=== PATIENT | male | born 1965 | race African-American/Black ===

== ENCOUNTER 2024-11-10 23:41 | Emergency (ER) | payer BC, OTHER ==
[2024-11-10 23:53] VITALS: BMI 21.8
[2024-11-11] MEDS ORDERED: ALBUTEROL SO4 2.5/IPRATROPIUM 0.5 INH SOL 3 ML VIAL.NEB. NEB ONE (00:05)
[2024-11-11] MEDS ORDERED: FUROSEMIDE 40 MG/4 ML INJECTABLE VIAL ONE (00:13)
[2024-11-11] MEDS ORDERED: ASPIRIN 81 MG CHEWABLE TABLETS ONE (00:13)
[2024-11-11] MEDS: ASPIRIN 81 MG CHEWABLE TABLETS PO ONE (00:23)
[2024-11-11] MEDS ORDERED: CLOPIDOGREL BISULFATE 300 MG TABLET ONE (00:25)
[2024-11-11] MEDS ORDERED: ONDANSETRON 4 MG/2 ML VIAL ONE (00:25)
[2024-11-11] MEDS ORDERED: FAMOTIDINE 20 MG/50 ML IVPB 20 MG/50 ML MG IVPB ONE (00:25)
[2024-11-11 00:27] LABS: BASO % 0.6 % (0-2.0); EOS % 0.1 % (0-4.5); HEMATOCRIT 39.9 % (35.4-49); HEMOGLOBIN 13.5 GM/dL (11.7-16.9); LYMPH % 43.4 % (8-40); MCH 34.6 pg (25.7-33.7); MCHC 33.7 g/dl (32.0-35.9); MEAN CELL VOLUME 102.7 fl (80-96); MEAN PLT VOLUME 8.4 fl (7.5-11.1); MONO % 13.8 % (3.8-10.2); NEUT % 42.1 % (42.8-82.8); PLATELET COUNT 102 10^3/uL (134-434); RBC 3.89 M/mm3 (4.00-5.60); RDW 14.4 % (11.9-15.9); WHITE BLOOD COUNT 3.7 K/mm3 (4.0-10.0)
[2024-11-11] MEDS: FAMOTIDINE 20 MG/50 ML IVPB 20 MG/50 ML MG IVPB ONE (00:27)
[2024-11-11] MEDS: FUROSEMIDE 40 MG/4 ML INJECTABLE VIAL IVPUSH ONE (00:27)
[2024-11-11] MEDS: CLOPIDOGREL BISULFATE 300 MG TABLET PO ONE (00:28)
[2024-11-11] MEDS: ONDANSETRON 4 MG/2 ML VIAL IVPUSH ONE (00:28)
[2024-11-11 00:31] VITALS: RESP 18
[2024-11-11] MEDS ORDERED: PANTOPRAZOLE SODIUM 40 MG VIAL ONE (00:32)
[2024-11-11] MEDS: PANTOPRAZOLE SODIUM 40 MG VIAL IVPUSH ONE (00:33)
[2024-11-11 00:35] LABS: VENOUS BASE EXCESS -3.3 mmol/L (-2-2); VENOUS O2 SATURATION 80.1 % (70-80); VENOUS PCO2 30.8 mmHg (38-52); VENOUS PH 7.429 (7.310-7.410)
[2024-11-11 01:16] VITALS: BP 124/76; PULSE 133; TEMP 98.7
[2024-11-11 01:22] LABS: INR 1.3 (0.83-1.09); PROTHROMBIN TIME (PATIENT) 14.2 SEC (9.7-13.0)
[2024-11-11 01:23] LABS: LACTIC ACID 4.9 mmol/L (0.4-2.0)
[2024-11-11 01:24] LABS: POTASSIUM 4.2 mmol/L (3.5-5.1)
[2024-11-11 01:25] LABS: ACTIVATED PTT 29.4 SECONDS (25.2-36.5)
[2024-11-11 01:26] LABS: ALBUMIN 3.4 g/dl (3.4-5.0); BLOOD UREA NITROGEN 18.1 mg/dL (7-18); MAGNESIUM 1.8 mg/dL (1.8-2.4)
[2024-11-11 01:29] LABS: CREATININE 1.1 mg/dL (0.55-1.3)
[2024-11-11 01:30] LABS: PHOSPHOROUS 3.1 mg/dL (2.5-4.9)
[2024-11-11 01:31] LABS: BILIRUBIN,TOTAL 1.6 mg/dL (0.2-1); TOT PROT 6.3 g/dl (6.4-8.2)
[2024-11-11 01:32] LABS: N-TERMINAL BNP 3799.9 pg/ml (5-125)
== END 2024-11-11 01:18 | disposition short-term general hospital (02) ==
LOC: JER 23:41
PROC: 3E033GC Introduction of Other Therapeutic Substance into Peripheral Vein, Percutaneous Approach (ICD-10-PCS; principal; 2024-11-11)
PROC: 3E033GC Introduction of Other Therapeutic Substance into Peripheral Vein, Percutaneous Approach (ICD-10-PCS; 2024-11-11)
PROC: 3E033GC Introduction of Other Therapeutic Substance into Peripheral Vein, Percutaneous Approach (ICD-10-PCS; 2024-11-11)
PROC: 3E033GC Introduction of Other Therapeutic Substance into Peripheral Vein, Percutaneous Approach (ICD-10-PCS; 2024-11-11)
DX: R07.2 Precordial pain (principal); R06.02 Shortness of breath; R00.2 Palpitations; R10.13 Epigastric pain; R06.01 Orthopnea; R60.0 Localized edema; R00.0 Tachycardia, unspecified
CPT/HCPCS: 0241U-QW; 36415; 71045-TC-FY; 80053; 82550; 82553; 82803; 83605; 83690; 83735; 83880; 84100; 84484; 85025; 85379; 85610; 85730; 86850; 86900; 86901; 93005; 93010; 99285-25

== ENCOUNTER 2025-02-18 19:33 | Observation (INO) | payer BC, OTHER ==
[2025-02-18 19:38] VITALS: BMI 22.4
[2025-02-18] MEDS ORDERED: LIDOCAINE 1%/EPI 1:100000 (20 ML MULTI DOSE VIAL) ONE (19:47)
[2025-02-18] MEDS: LIDOCAINE 1%/EPI 1:100000 (20 ML MULTI DOSE VIAL) INF ONE (19:51)
[2025-02-18] MEDS ORDERED: TRANEXAMIC ACID 1000 MG/10 ML VIAL ONE (19:53)
[2025-02-18 20:39] LABS: ABSOLUTE IMMATURE GRANULOCYTES 0.01 x10^3/uL (0.0-0.031); EOSINOPHIL % 0.3 % (0.8-7.0); EOSINOPHILS # 0.01 x10^3/uL (0.04-0.54); HEMOGLOBIN 13.6 g/dL (13.7-17.5); MONOCYTE % 12.2 % (5.3-12.2); PLATELET COUNT 146 x10^3/uL (163-337)
[2025-02-18 20:40] LABS: BASOPHILS # 0.03 x10^3/uL (0.01-0.08); HEMATOCRIT 40.8 % (40.1-51.0); MCHC 33.3 g/dl (32.3-36.5); MEAN PLT VOLUME 10.2 fl (9.4-12.4); MONOCYTE # 0.45 x10^3/uL (0.30-0.82); RDW 16.3 % (12.2-16.4)
[2025-02-18] MEDS ORDERED: CEFAZOLIN 1 GM/D5W 1 GM/50 ML BAG ONE (20:44)
[2025-02-18] MEDS ORDERED: ACETAMINOPHEN INJECTION 100 ML ONE (20:45)
[2025-02-18] MEDS: TRANEXAMIC ACID 1000 MG/10 ML VIAL NS ONE (21:03)
[2025-02-18] MEDS: CEFAZOLIN 1 GM in DEXTROSE 5%-WATER - 50 ML IVPB ONE (21:04)
[2025-02-18] MEDS: LACTATED RINGERS SOLUTION 1000 ML INFUS.BAG IV ONE (21:04)
[2025-02-18] MEDS: ACETAMINOPHEN 1000 MG/100 ML BAG IVPB ONE (21:04)
[2025-02-18] MEDS: TRANEXAMIC ACID 1000 MG/10 ML VIAL IVPUSH ONE (21:05)
[2025-02-18 21:06] LABS: POTASSIUM 3.6 mmol/L (3.5-5.1)
[2025-02-18] MEDS ORDERED: DIPHTH,PERTUSS(ACELL),TET 0.5 ML DISP.SYRIN IM ONE (21:06)
[2025-02-18 21:08] LABS: CALCIUM 8.5 mg/dL (8.5-10.1)
[2025-02-18 21:09] LABS: ALBUMIN 3.2 g/dl (3.4-5.0); BLOOD UREA NITROGEN 12.5 mg/dL (7-18)
[2025-02-18 21:12] LABS: CREATININE 1.1 mg/dL (0.55-1.3)
[2025-02-18 21:13] LABS: BILIRUBIN,TOTAL 1.5 mg/dL (0.2-1)
[2025-02-18 21:14] LABS: TOT PROT 6.2 g/dl (6.4-8.2)
[2025-02-18] MEDS: DIPHTH,PERTUSS(ACELL),TET 0.5 ML DISP.SYRIN IM ONE (21:35)
[2025-02-18 21:58] LABS: INR 1.53 (0.83-1.09); PROTHROMBIN TIME (PATIENT) 16.8 SEC (9.7-13.0)
[2025-02-18 22:01] LABS: ACTIVATED PTT 30.6 SECONDS (25.2-36.5)
[2025-02-18] MEDS ORDERED: MAG HYDROX/AL HYDROX/SIMETH 30 ML UNIT-DOSE CUP ONE (22:09)
[2025-02-18] MEDS ORDERED: PANTOPRAZOLE SODIUM 40 MG VIAL ONE (22:10)
[2025-02-18] MEDS: MAG HYDROX/AL HYDROX/SIMETH 30 ML UNIT-DOSE CUP PO ONE (22:10)
[2025-02-18] MEDS: PANTOPRAZOLE SODIUM 40 MG VIAL IVPUSH ONE (22:11)
[2025-02-19] MEDS: INSULIN ASPART SLIDING SCALE (NOVOLOG) 1 VIAL SQ SCH (00:19)
[2025-02-19 02:01] VITALS: RESP 18
[2025-02-19] MEDS: ACETAMINOPHEN 1000 MG/100 ML BAG IVPB PRN (02:13)
[2025-02-19] MEDS: SACUBITRIL/VALSARTAN 24 MG-26 MG TABLET PO SCH (02:14)
[2025-02-19] MEDS: metoPROLOL SUCCINATE 25 MG TAB.SR.24H (FP) PO SCH (02:14)
[2025-02-19 07:15] LABS: POTASSIUM 3.7 mmol/L (3.5-5.1)
[2025-02-19 07:16] LABS: INR 1.54 (0.83-1.09); PROTHROMBIN TIME (PATIENT) 16.9 SEC (9.7-13.0)
[2025-02-19 07:17] LABS: CALCIUM 8.7 mg/dL (8.5-10.1); HEMATOCRIT 39.6 % (40.1-51.0); HEMOGLOBIN 12.9 g/dL (13.7-17.5); MCHC 32.6 g/dl (32.3-36.5); MEAN CELL VOLUME 97.1 fl (79.0-92.2); MEAN PLT VOLUME 10.8 fl (9.4-12.4); PLATELET COUNT 144 x10^3/uL (163-337); RDW 16.2 % (12.2-16.4)
[2025-02-19 07:18] LABS: ACTIVATED PTT 30.8 SECONDS (25.2-36.5); ALBUMIN 3.4 g/dl (3.4-5.0); BLOOD UREA NITROGEN 12.9 mg/dL (7-18); MAGNESIUM 1.7 mg/dL (1.8-2.4)
[2025-02-19 07:21] LABS: BILIRUBIN,DIRECT 0.8 mg/dL (0.0-0.2); CREATININE 0.9 mg/dL (0.55-1.3); PHOSPHOROUS 3.5 mg/dL (2.5-4.9)
[2025-02-19 07:22] LABS: BILIRUBIN,TOTAL 1.6 mg/dL (0.2-1)
[2025-02-19 07:23] LABS: TOT PROT 6.3 g/dl (6.4-8.2)
[2025-02-19] MEDS: MULTIVITAMINS (DAILY MVI) TABLET (FP) PO SCH (09:32)
[2025-02-19] MEDS: TORSEMIDE 20 MG TABLET (FP) PO SCH (09:32)
[2025-02-19] MEDS: FOLIC ACID 1 MG TABLET (FP) PO SCH (09:32)
[2025-02-19] MEDS: MAGNESIUM 2GM/50ML STERILE WATER IVPB IVPB ONE (09:32)
[2025-02-19] MEDS: MAG HYDROX/AL HYDROX/SIMETH 30 ML UNIT-DOSE CUP PO PRN (09:32)
[2025-02-19] MEDS ORDERED: VERICIGUAT 5 MG PO SCH (10:00)
[2025-02-19] MEDS: SPIRONOLACTONE 25 MG TABLET PO SCH (12:00)
[2025-02-19] MEDS: FUROSEMIDE 40 MG/4 ML INJECTABLE VIAL IVPUSH SCH (12:00)
[2025-02-20] MEDS: APIXABAN 5 MG TABLET PO SCH (09:43)
[2025-02-20 10:40] LABS: HEMATOCRIT 42.5 % (40.1-51.0); HEMOGLOBIN 13.5 g/dL (13.7-17.5); MCHC 31.8 g/dl (32.3-36.5); MEAN CELL VOLUME 98.2 fl (79.0-92.2); MEAN PLT VOLUME 11.3 fl (9.4-12.4); PLATELET COUNT 122 x10^3/uL (163-337); RDW 16.2 % (12.2-16.4)
[2025-02-20 10:56] LABS: POTASSIUM 3.3 mmol/L (3.5-5.1)
[2025-02-20 10:58] LABS: CALCIUM 8.6 mg/dL (8.5-10.1)
[2025-02-20 10:59] LABS: ALBUMIN 3.2 g/dl (3.4-5.0); BLOOD UREA NITROGEN 17.3 mg/dL (7-18); MAGNESIUM 1.8 mg/dL (1.8-2.4)
[2025-02-20 11:01] LABS: PHOSPHOROUS 3.5 mg/dL (2.5-4.9)
[2025-02-20 11:02] LABS: CREATININE 1.2 mg/dL (0.55-1.3)
[2025-02-20 11:03] LABS: BILIRUBIN,TOTAL 1.6 mg/dL (0.2-1); TOT PROT 6.2 g/dl (6.4-8.2)
[2025-02-20] MEDS: FUROSEMIDE 40 MG/4 ML INJECTABLE VIAL IVPUSH SCH (13:37)
[2025-02-20 14:48] VITALS: BP 90/80; PULSE 110; TEMP 97.7
[2025-02-20] MEDS ORDERED: SACUBITRIL/VALSARTAN 49 MG-51 MG TABLET PO SCH (22:00)
== END 2025-02-20 15:38 | disposition home or self-care (01) ==
LOC: JER 19:33 → JERBED 20:30 → J4W 02-19 00:22
PROVIDERS: ADMIT Hospitalist; ATTEND Internal Medicine
PROC: 3E033NZ Introduction of Analgesics, Hypnotics, Sedatives into Peripheral Vein, Percutaneous Approach (ICD-10-PCS; principal; 2025-02-18)
PROC: 3E03329 Introduction of Other Anti-infective into Peripheral Vein, Percutaneous Approach (ICD-10-PCS; 2025-02-18)
PROC: 3E0234Z Introduction of Serum, Toxoid and Vaccine into Muscle, Percutaneous Approach (ICD-10-PCS; 2025-02-18)
PROC: 3E033GC Introduction of Other Therapeutic Substance into Peripheral Vein, Percutaneous Approach (ICD-10-PCS; 2025-02-18)
PROC: 3E0337Z Introduction of Electrolytic and Water Balance Substance into Peripheral Vein, Percutaneous Approach (ICD-10-PCS; 2025-02-18)
DX: S01.91XA Laceration without foreign body of unspecified part of head, initial encounter (principal); I48.0 Paroxysmal atrial fibrillation; Z79.01 Long term (current) use of anticoagulants; W18.39XA Other fall on same level, initial encounter; Y93.89 Activity, other specified; Y92.038 Other place in apartment as the place of occurrence of the external cause; R73.03 Prediabetes; I50.9 Heart failure, unspecified; K21.9 Gastro-esophageal reflux disease without esophagitis; Z87.891 Personal history of nicotine dependence; R94.5 Abnormal results of liver function studies; Z23 Encounter for immunization
CPT/HCPCS: 36415; 70450-TC; 71045-TC-FY; 72125-TC; 72170-TC-FY; 80053; 82248; 82962; 83036; 83735; 83880; 84100; 84484; 85025; 85027; 85610; 85730; 86850; 86900; 86901; 90715; 93005; 93010; 93971-TC; 97116-GP; 97161-GP; 99285-25; G0378